=== PATIENT | female | born 1960 | race Caucasian/White ===

== ENCOUNTER 2025-03-19 08:15 | Emergency (ER) | payer BC, SELFPAY ==
[2025-03-19 08:17] VITALS: BP 121/92
--- NOTE | 2025-03-19 08:40 | ED.GENMED ---
History of Present Illness
General
Chief Complaint: Abnormal Lab Value
Time Seen by Provider: 03/19/25 08:40
History of Present Illness
History of Present Illness:
TIME OF INITIAL ENCOUNTER: 9:45 AM
HPI: The patient was sent here by Dr. Hicks due to abnormal blood work. I reviewed records that were faxed here.
Ultrasound 03/14/2025 that showed 'mildly heterogeneous and hypervascular thyroid gland suggestive of thyroiditis'
Chest x-ray on 03/09/2025 was unremarkable other than some blunting of the costophrenic angle and hyperinflation
February 12, 2025: Bicarb was normal at 25 and hemoglobin was 11.0, Cr 1.32
February 22, 2025: CT abdomen pelvis without contrast showed no stone, 'indeterminate renal lesions represent hemorrhagic/proteinaceous cyst could be confirmed with contrast-enhanced MRI, status post colectomy with right lower quadrant ileostomy'.
March 14, 2025: Haptoglobin was 423 (high), ferritin was high at 329. EBV IgM negative, IgG positive TIBC normal, iron normal, iron sat normal. Creatinine 1.53, bicarb 16, B12 and folate were normal. C-reactive protein was 65, TSH less than 0.01
and free T4 was 3. Lyme IgM negative, white count 12, hemoglobin 8.6.
The patient tells me that she has been 'feeling lousy'. She feels tired. She does not necessarily have any pain. She was recently encouraged to use NSAIDs instead of Tylenol I believe for the management of thyroiditis.
EXAM:
GENERAL: Appears generally weak, somewhat cachectic, room air sats 100%
HEENT: Moist oral mucosa
CARDIOVASCULAR: No murmurs, normal heart rate, regular rhythm, No chest wall tenderness
PULMONARY: No respiratory distress, breath sounds are clear and equal
ABDOMEN: Soft with no peritoneal signs, no tenderness, ileostomy in the right lower quadrant and the stool is somewhat dark and heme positive
NEUROLOGIC: Good strength all extremities, no coordination deficits
PSYCHIATRIC: Appropriate mental status, normal insight and judgement
EXTREMITIES: Nontender, no edema, moves all extremities equally
SKIN: No rash, no lesions, but appears slightly pale
NUMBER AND COMPLEXITY OF PROBLEMS ADDRESSED AT THE ENCOUNTER
� Chronic conditions affecting care: CKD stage II (patient states due to lithium use), anemia noted since April 2019 bipolar with history of delisa and used to be on lithium, trigeminal neuralgia, Crohn's, depression, DIONNE
� Acute Exacerbation and/or Progression of Chronic Illness: This is an acute problem
� Differential Diagnosis includes: Blood loss anemia, metabolic acidosis, acute on chronic renal insufficiency, dehydration
AMOUNT AND/OR COMPLEXITY OF DATA TO BE REVIEWED AND ANALYZED
� I performed an independent evaluation of and my interpretation is:
EKG: Sinus 79, some baseline artifact in V1, no acute ST abnormality
CT:
X-rays: Chest x-ray is hyperaerated with blunting of the costophrenic angles
Laboratory Studies: Hemoglobin is 8.5, white count normal, VBG shows a pH of 7.30, PCO2 of 55
Other:
� Review of other/old records: No old records available for review in [facility]
� Clinical information was obtained by an independent historian: I spoke to her primary care doctor
� Prescriptions/Medications Considered but not given:
� Further testing considered but not performed:
RISK OF COMPLICATIONS AND/OR MORBIDITY OR MORTALITY OF PATIENT MANAGEMENT
� Social determinants of health affecting care: Lives at home
� Discussion with other providers: I discussed case with Dr. Hicks over the phone
� Escalation of care including admission/observation vs risk of discharge considered:
White blood cell count is normal. Hemoglobin is 8.5. Although bicarbonate level was low in the recent past, it is currently normal. We did a venous blood gas that showed a pH of 7.30 and a PCO2 of 55 which is high. She will start the CPAP when
you get it. Creatinine is 1.4 which is similar to your recent baseline. Cardiac blood work shows no sign of heart attack or heart failure.
Recommended that follow-up with your GI doctor as you do have heme positive stool from the ileostomy bag and with your kidney doctor as well.
I have also given the contact information for a local dam tender, Dr. Sifuentes. Haptoglobin level is currently pending.
Summary of records from outpatient:
Ultrasound 03/14/2025 that showed 'mildly heterogeneous and hypervascular thyroid gland suggestive of thyroiditis'
Chest x-ray on 03/09/2025 was unremarkable other than some blunting of the costophrenic angle and hyperinflation
February 12, 2025: Bicarb was normal at 25 and hemoglobin was 11.0, Cr 1.32
February 22, 2025: CT abdomen pelvis without contrast showed no stone, 'indeterminate renal lesions represent hemorrhagic/proteinaceous cyst could be confirmed with contrast-enhanced MRI, status post colectomy with right lower quadrant ileostomy'.
March 14, 2025: Haptoglobin was 423 (high), ferritin was high at 329. EBV IgM negative, IgG positive TIBC normal, iron normal, iron sat normal. Creatinine 1.53, bicarb 16, B12 and folate were normal. C-reactive protein was 65, TSH less than 0.01
and free T4 was 3. Lyme IgM negative, white count 12, hemoglobin 8.6.
The patient tells me that she has been 'feeling lousy'. She feels tired. She does not necessarily have any pain. She was recently encouraged to use NSAIDs instead of Tylenol I believe for the management of thyroiditis.
ANY OTHER UPDATES:
10:30 AM: I reassessed patient. She tells me that she 'feels fine' and has no objections about going home. My main concern is the drop in the hemoglobin along with Hemoccult positive stool�she has a GI doctor to follow-up with.
Phy Exam
Physical Exam
Physical Exam:
See HPI
Course
Orders/Labs/Results
Orders:
Orders
03/19/25 08:42
Electrocardiogram (*1) Urgent
Reason for Study: Shortness of Breath
EKG- Treatment ONCE
CR Chest - 2 Views Urgent
Comment:
Reason For Exam: sob
03/19/25 09:13
Type+Screen Urgent
Complete Blood Count/With Diff Urgent
Comprehensive Metabolic Panel Urgent
Ferritin Urgent
Haptoglobin [S] Urgent
Iron Urgent
NT-proBNP Urgent
TSH Reflex To Free T4 Urgent
Total Iron Binding Urgent
Troponin I Urgent
Venous Blood Gas Urgent
%Oxygen/Room Air: RA
03/19/25 09:19
0.9% Sodium Chloride 1000 ml [Nss] 1,000 ml IV BOLUS
03/19/25 09:45
ABO2 Urgent
BBK Wristband Number:
Associate notified that ABO2 has been ordered: [id number]
Date: 03/19/25
Time: 09:28
Sisal Operator ID: [id number]
Abnormal Lab Results
03/19/25
09:13
RBC 2.71 L 10^6/uL
(4.20-5.40)
Hgb 8.5 L g/dL
(12.0-16.0)
Hct 26.2 L %
(37.0-47.0)
MCH 31.4 H pg
(27.0-31.0)
MCHC 32.4 L g/dL
(33.0-37.0)
Plt Count 470 H 10^3/uL
(130-400)
Absolute Monos (auto) 0.8 H 10^3/uL
(0.1-0.6)
Monocytes % 9.4 H %
(1.7-9.3)
VBG pH 7.30 L
(7.32-7.43)
VBG pCO2 55 H mmHg
(35-48)
VBG HCO3 27.1 H mmol/L
(22-27)
Chloride 111 H mmol/L
(98-107)
Creatinine 1.4 H mg/dL
(0.6-1.0)
03/19/25 09:13
03/19/25 09:13
Vital Signs
Initial and Last Documented VS:
Initial Vital Signs
Temp Pulse Resp BP Pulse Ox
36.9 C 81 18 121/92 100
03/19/25 08:17 03/19/25 08:17 03/19/25 08:17 03/19/25 08:17 03/19/25 08:17
Last Documented Vital Signs
Temp Pulse Resp BP Pulse Ox
36.9 C 71 18 127/69 100
03/19/25 08:17 03/19/25 10:15 03/19/25 10:15 03/19/25 10:08 03/19/25 09:15
*Critical Care Note
Total Time (30-74mins, 75-104mins- exclusive of procedures): Not Applicable
ED Attending Note
-
Portions of this chart may have been created with voice recognition software.� Occasional wrong word or��sound alike� substitutions may have occurred due to the inherent limitations of voice recognition software.
Discharge Plan
Departure
Patient Disposition: Home (Routine Discharge)
Date of Disposition: 03/19/25
Time of Disposition: 10:15
Patient with high blood pressure during this ER visit?: Yes
Discharge Problem:
Anemia
Instructions: Anemia overview
Referrals:
Kelli Sifuentes MD [Active, Oncology]
Activity Restrictions/Additional Instructions:
Your white blood cell count is normal. Hemoglobin is 8.5. Although your bicarbonate level was low in the recent past, it is currently normal. We did a venous blood gas that showed a pH of 7.30 and a PCO2 of 55 which is high. I do recommend that
you start the CPAP when you get it. Your creatinine is 1.4 which is similar to your recent baseline. Cardiac blood work shows no sign of heart attack or heart failure.
I recommend that you follow-up with your GI doctor as you do have heme positive stool from the ileostomy bag. I also recommend that you follow-up with your kidney doctor as well.
I have also given you the contact information for a local dam tender, Dr. Sifuentes. I also recommend that you follow-up with her. Haptoglobin level is currently pending.
Summary of records from outpatient:
Ultrasound 03/14/2025 that showed 'mildly heterogeneous and hypervascular thyroid gland suggestive of thyroiditis'
Chest x-ray on 03/09/2025 was unremarkable other than some blunting of the costophrenic angle and hyperinflation
February 12, 2025: Bicarb was normal at 25 and hemoglobin was 11.0, Cr 1.32
February 22, 2025: CT abdomen pelvis without contrast showed no stone, 'indeterminate renal lesions represent hemorrhagic/proteinaceous cyst could be confirmed with contrast-enhanced MRI, status post colectomy with right lower quadrant ileostomy'.
March 14, 2025: Haptoglobin was 423 (high), ferritin was high at 329. EBV IgM negative, IgG positive TIBC normal, iron normal, iron sat normal. Creatinine 1.53, bicarb 16, B12 and folate were normal. C-reactive protein was 65, TSH less than 0.01
and free T4 was 3. Lyme IgM negative, white count 12, hemoglobin 8.6.
The patient tells me that she has been 'feeling lousy'. She feels tired. She does not necessarily have any pain. She was recently encouraged to use NSAIDs instead of Tylenol I believe for the management of thyroiditis.
Interventions
Interventions:
*Risk Screen - Suicide Last Done: 03/19/25 08:17
*General Assessment Last Done: 03/19/25 08:17
*ED- Fall Risk Assessment Last Done: 03/19/25 10:00
*ED COVID-19 Vaccine History Last Done: 03/19/25 10:00
Discharge Date and Time
Print Language: BELIZEAN
[2025-03-19 09:15] VITALS: BP 121/70
[2025-03-19 09:17] VITALS: BMI 18.6
[2025-03-19 09:26] LABS: % Basophils 0.6 % (0-2); % Eosinophils 4.6 % (0-6); % Immature Granulocytes 0.4 % (0-0.5); % Lymphocytes 23.4 % (20.5-51.1); % Monocytes 9.4 % (1.7-9.3); % Neutrophils 61.6 % (42.2-75.2); Absolute Basophils 0.1 10^3/uL (0-0.2); Absolute Eosinophils 0.4 10^3/uL (0-0.7); Absolute Lymphocytes 1.9 10^3/uL (1.2-3.4); Absolute Monocytes 0.8 10^3/uL (0.1-0.6); Hematocrit 26.2 % (37.0-47.0); Hemoglobin 8.5 g/dL (12.0-16.0); Mean Corp Hgb Conc. 32.4 g/dL (33.0-37.0); Mean Corpuscular Hgb 31.4 pg (27.0-31.0); Mean Corpuscular Volume 96.7 fL (81.0-99.0); Mean Platelet Volume 8.8 fL (7.4-10.4); Nucleated Red Blood Cells % 0 %; Platelet Count 470 10^3/uL (130-400); Red Blood Cell Count 2.71 10^6/uL (4.20-5.40); Red Cell Dist. Width 12.9 % (11.5-14.5); White Blood Cell Count 8.1 10^3/uL (4.8-10.8)
[2025-03-19 09:28] LABS: Venous Blood Gas B.E. 0.2 mmol/L (-4 to +4); Venous Blood Gas HCO3 27.1 mmol/L (22-27); Venous Blood Gas O2 Sat % 72.5 %; Venous Blood Gas pCO2 55 mmHg (35-48); Venous Blood Gas pO2 44 mmHg (30-50)
[2025-03-19] MEDS: NSS 1000 IV (09:40)
[2025-03-19 09:58] LABS: ALT (SGPT) 32 U/L (0-35); AST (SGOT) 31 U/L (14-36); Albumin 3.7 g/dl (3.5-5.0); Alkaline Phosphatase 69 U/L (38-126); Blood Urea Nitrogen 17 mg/dl (7-17); Calcium 9.4 mg/dl (8.4-10.2); Carbon Dioxide 24 mmol/L (22-30); Chloride 111 mmol/L (98-107); Estimated Creatinine Clearance 30 ml/min; Glucose 98 mg/dl (70-99); Iron 72 ug/dl (37-170); Potassium 4.6 mmol/L (3.5-5.1); Sodium 140 mmol/L (135-145); Total Bilirubin 0.3 mg/dl (0.2-1.3); Total Protein 6.3 g/dl (6.3-8.2); eGFR 42.54
[2025-03-19 09:59] LABS: NT-proBNP 368 pg/ml; Troponin I < 0.012 ng/ml
[2025-03-19 10:07] LABS: Percent Saturation 26 % (20-50); Total Iron Binding Capacity 275 ug/dl (265-497)
[2025-03-19 10:08] VITALS: BP 127/69
[2025-03-19 10:28] LABS: TSH Reflex To Free T4 < 0.02 uIU/ml (0.47-4.68)
[2025-03-19 10:56] LABS: Free T4 0.96 ng/dl (0.78-2.19)
[2025-03-21 03:37] LABS: Haptoglobin 224 mg/dL (30-200)
== END 2025-03-19 11:02 | disposition home or self-care (01) ==
LOC: EMR 08:15
PROVIDERS: EMERGENCY PHYSICIAN Emergency Medicine; FAMILY PHYSICIAN Internal Medicine
DX: D64.9 Anemia, unspecified (principal); N18.2 Chronic kidney disease, stage 2 (mild); F31.9 Bipolar disorder, unspecified; Z93.2 Ileostomy status; Z90.49 Acquired absence of other specified parts of digestive tract; G47.33 Obstructive sleep apnea (adult) (pediatric)
CPT/HCPCS: 99285; 96360; 71046; 80053; 82728; 82805; 83010; 83540; 83550; 83880; 84439; 84443; 84484; 85025; 86850; 86900; 86901; 93005

== ENCOUNTER → 2025-09-26 10:17 | Outpatient (REF) | payer BC, SELFPAY | LOC: HWRAD 10:17 | PROVIDERS: ATTENDING PHYSICIAN Internal Medicine | DX: R93.89 Abnormal findings on diagnostic imaging of other specified body structures (principal) | CPT/HCPCS: 71250 ==